=== PATIENT | male | born 1960 | race Caucasian/White ===

== ENCOUNTER 2017-05-28 14:39 | Outpatient (CLI) | payer OTHER | END 2017-05-28 14:40 | disposition short-term general hospital (02) | LOC: EMS 14:39 | PROVIDERS: ATTEND Surgery | DX: I95.9 Hypotension, unspecified (principal) | CPT/HCPCS: A0425; A0426 ==

== ENCOUNTER 2018-08-05 16:49 | Emergency (ER) | payer OTHER ==
--- NOTE | 2018-08-05 17:06 | ED Physician Documentation ---
PD HPI MHE - Stated complaint Stated Complaint: SI - Chief complaint Chief Complaint: MHE - History obtained from History obtained from: Patient, EMS - History of Present Illness Primary symptom: Suicidal ideation Pain level max: 0 Pain level now: 0 Contributing factors: Sig other ( left him this week) Similar symptoms before: Diagnosis (bipolar) Recently seen: Clinic (sent from [facility] today) - Additional information Additional information: Patient is a 58-year-old male with a history of bipolar disorder who states that he has been feeling very depressed lately and suicidal. States that he held a knife to his throat a few days ago but did not feel like he was going to kill himself at that time. He states he is unsure if he can keep himself safe at home. States his moved out this week and moved in with her sister. He states he does have a psychiatrist at the [employer] but has not seen them recently. Saw his primary care provider today who sent him to the emergency department for suicidal ideation. Review of Systems Constitutional: denies: Fever, Chills Ears: denies: Ear pain Nose: denies: Rhinorrhea / runny nose, Congestion Throat: denies: Sore throat Cardiac: denies: Chest pain / pressure Respiratory: denies: Cough GI: denies: Vomiting Skin: denies: Rash Musculoskeletal: denies: Neck pain, Back pain Neurologic: denies: Headache PD PAST MEDICAL HISTORY - Past Medical History Past Medical History: Yes Cardiovascular: Hypertension Endocrine/Autoimmune: HyPOthyroidism Psych: Bipolar disorder - Present Medications Home Medications: Ambulatory Orders Medication Instructions Recorded Confirmed Amlodipine Besylate [Norvasc] 10 mg 08/05/18 Atorvastatin [Lipitor] 10 mg 08/05/18 Chlorthalidone 25 mg 08/05/18 Divalproex Sodium [Divalproex 250 mg 08/05/18 Sodium ER] Dulaglutide [Trulicity] 1.5 mg SQ 08/05/18 Fenofibrate 160 mg 08/05/18 Gabapentin 300 mg PO 08/05/18 Insulin Aspart [Novolog Flexpen] 1 unit 08/05/18 Insulin Glargine [Lantus Solostar] 1 unit 08/05/18 Oxybutynin [Ditropan] 5 mg 08/05/18 Prazosin [Minipress] 1 mg PO QPM 08/05/18 08/05/18 QUEtiapine [SEROquel] 100 mg PO QPM 08/05/18 08/05/18 Senna [Senokot] 8.6 mg pe 08/05/18 Telmisartan [Micardis] 80 mg PO 08/05/18 Vardenafil HCl [Levitra] 20 mg PO 08/05/18 Venlafaxine HCl [Venlafaxine HCl 150 mg PO 08/05/18 08/05/18 ER] metFORMIN [Glucophage] 500 mg pe 08/05/18 traZODone [Desyrel] 50 mg 08/05/18 - Allergies Allergies/Adverse Reactions: Allergies Allergy/AdvReac Type Severity Reaction Status Date / Time No Known Drug Allergies Allergy Verified 08/05/18 16:58 - Living Situation Living Situation: reports: With family Living Arrangement: reports: At home - Social History Does the pt have substance abuse?: No - Family History Family history: reports: Non contributory PD ED PE NORMAL - Vitals Vital signs reviewed: Yes - General General: Alert and oriented X 3, No acute distress, Well developed/nourished - HEENT HEENT: PERRL, Moist mucous membranes, Other (Tearful) - Neck Neck: Supple, no meningeal sign - Cardiac Cardiac: RRR, Strong equal pulses - Respiratory Respiratory: No respiratory distress, Clear bilaterally - Abdomen Abdomen: Soft, Non tender, Non distended - Derm Derm: Warm and dry - Extremities Extremities: No edema - Neuro Neuro: Alert and oriented X 3 - Psych Psych: Other (Tearful) Results - Vitals Vitals: Vital Signs - 24 hr 08/05/18 16:51 Temperature 36.5 C Heart Rate 104 H Respiratory 18 Rate Blood Pressure 170/111 H O2 Saturation 98 Oxygen O2 Source Room air - Labs Labs: Laboratory Tests 08/05/18 08/05/18 08/05/18 17:12 17:12 17:12 WBC 6.0 RBC 4.70 Hgb 15.1 Hct 42.3 MCV 90.1 MCH 32.1 H MCHC 35.7 RDW 12.1 Plt Count 280 MPV 8.0 Neut # (Auto) 3.4 Lymph # (Auto) 1.8 [place] # (Auto) 0.5 Eos # (Auto) 0.2 Baso # (Auto) 0.1 Absolute Nucleated RBC 0.00 Nucleated RBC % 0.0 Sodium 131 L Potassium 3.2 L Chloride 98 L Carbon Dioxide 23 Anion Gap 10.0 BUN 22 H Creatinine 1.1 Estimated GFR (MDRD) 69 L Glucose 305 H Calcium 9.6 Total Bilirubin 0.7 AST 27 ALT 22 Alkaline Phosphatase 70 Total Protein 7.7 Albumin 4.3 Globulin 3.4 Albumin/Globulin Ratio 1.3 Lipase 48 TSH 1.19 Urine Color Urine Clarity Urine pH Ur Specific [place] Urine Protein Urine Glucose (UA) Urine Ketones Urine Occult Blood Urine Nitrite Urine Bilirubin Urine Urobilinogen Ur Leukocyte Esterase Urine RBC Urine WBC Ur Squamous Epith Cells Urine Bacteria Ur Microscopic Review Urine Culture Comments Salicylates < 6.0 Urine Opiates Screen Ur Oxycodone Screen Urine Methadone Screen Ur Propoxyphene Screen Acetaminophen < 10 L Ur Barbiturates Screen Ur Tricyclics Screen Ur Phencyclidine Scrn Ur Amphetamine Screen U Methamphetamines Scrn U Benzodiazepines Scrn Urine Cocaine Screen U Cannabinoids Screen Ethyl Alcohol < 5.0 08/05/18 17:19 WBC RBC Hgb Hct MCV MCH MCHC RDW Plt Count MPV Neut # (Auto) Lymph # (Auto) [place] # (Auto) Eos # (Auto) Baso # (Auto) Absolute Nucleated RBC Nucleated RBC % Sodium Potassium Chloride Carbon Dioxide Anion Gap BUN Creatinine Estimated GFR (MDRD) Glucose Calcium Total Bilirubin AST ALT Alkaline Phosphatase Total Protein Albumin Globulin Albumin/Globulin Ratio Lipase TSH Urine Color YELLOW Urine Clarity CLEAR Urine pH 5.5 Ur Specific [place] >=1.030 H Urine Protein 100 H Urine Glucose (UA) >=1000 H Urine Ketones NEGATIVE Urine Occult Blood TRACE-INTA Urine Nitrite NEGATIVE Urine Bilirubin NEGATIVE Urine Urobilinogen 0.2 (NORMAL) Ur Leukocyte Esterase NEGATIVE Urine RBC 0-5 Urine WBC 0-3 Ur Squamous Epith Cells RARE Squamous Urine Bacteria None Seen Ur Microscopic Review INDICATED Urine Culture Comments NOT INDICATED Salicylates Urine Opiates Screen NEGATIVE Ur Oxycodone Screen NEGATIVE Urine Methadone Screen NEGATIVE Ur Propoxyphene Screen NEGATIVE Acetaminophen Ur Barbiturates Screen NEGATIVE Ur Tricyclics Screen NEGATIVE Ur Phencyclidine Scrn NEGATIVE Ur Amphetamine Screen NEGATIVE U Methamphetamines Scrn NEGATIVE U Benzodiazepines Scrn NEGATIVE Urine Cocaine Screen NEGATIVE U Cannabinoids Screen NEGATIVE Ethyl Alcohol PD MEDICAL DECISION MAKING - ED course Complexity details: reviewed results, re-evaluated patient, considered differential, d/w patient ED course: Patient is a 58-year-old male with suicidal ideation and a history of bipolar. recently left him. He cannot contract for safety at this time. He wants to be hospitalized. Patient is medically clear for psychiatric care. Blood sugar improved with IV fluids and insulin. Social work consult placed and he will be held in the emergency department overnight to see social work in the morning. This document was made in part using voice recognition software. While efforts are made to proofread this document, sound alike and grammatical errors may occur. Departure - Departure Clinical Impression: Hyperglycemia, Suicidal ideation Depression Qualifiers: Depression Type: unspecified Qualified Code(s): F32.9 - Major depressive disorder, single episode, unspecified Condition: Stable
[2018-08-05 17:21] LABS: MUDS CUTOFF CONCENTRATIONS CUTOFF CONC BELOW:
[2018-08-05 17:22] LABS: BASOPHILS # (AUTO) 0.1 10^3/uL (0.0-0.1); BASOPHILS % (AUTO) 1.1 %; EOSINOPHILS # (AUTO) 0.2 10^3/uL (0.0-0.7); HGB - HEMOGLOBIN 15.1 g/dL (14.0-18.0); LYMPHOCYTES # (AUTO) 1.8 10^3/uL (1.5-3.5); LYMPHOCYTES % (AUTO) 30.5 %; MEAN CORPUSCULAR HEMOGLOBIN 32.1 pg (27.0-31.0); MEAN CORPUSCULAR HGB CONC 35.7 g/dL (32.0-36.0); MEAN CORPUSCULAR VOLUME 90.1 fL (80.0-94.0); MONOCYTES # (AUTO) 0.5 10^3/uL (0.0-1.0); MONOCYTES % (AUTO) 7.7 %; NEUTROPHILS # (AUTO) 3.4 10^3/uL (1.5-6.6); NEUTROPHILS % (AUTO) 57.7 %; PLT - PLATELET COUNT 280 10^3/uL (130-450); RED CELL DISTRIBUTION WIDTH 12.1 % (12.0-15.0)
[2018-08-05 17:27] LABS: BILIRUBIN,URINE NEGATIVE (NEGATIVE); GLUCOSE, URINE (UA) >=1000 mg/dL (NEGATIVE); KETONES,URINE (UA) NEGATIVE (NEGATIVE); LEUKOCYTE ESTERASE, URINE NEGATIVE (NEGATIVE); NITRITE,URINE NEGATIVE (NEGATIVE); OCCULT BLOOD,URINE TRACE-INTA (NEGATIVE); PH,URINE 5.5 PH (5.0-7.5); PROTEIN,URINE 100 mg/dL (NEGATIVE); UROBILINOGEN,URINE 0.2 (NORMAL) E.U./dL (NORMAL)
[2018-08-05 17:29] LABS: CLARITY,URINE CLEAR (CLEAR)
[2018-08-05 17:32] LABS: ACETAMINOPHEN < 10 ug/mL (10-30); ALBUMIN 4.3 g/dL (3.2-5.5); ALBUMIN/GLOBULIN RATIO 1.3 (1.0-2.2); ALKALINE PHOSPHATASE 70 IU/L (42-121); ALT ALANINE AMINOTRANSFERASE 22 IU/L (10-60); AST ASPARTATE AMINOTRANSFERASE 27 IU/L (10-42); BILIRUBIN,TOTAL 0.7 mg/dL (0.2-1.0); BUN - BLOOD UREA NITROGEN 22 mg/dL (6-20); CALCIUM 9.6 mg/dL (8.5-10.3); CARBON DIOXIDE - CO2 23 mmol/L (21-32); CHLORIDE 98 mmol/L (101-111); CREATININE 1.1 mg/dL (0.6-1.2); GFR - MDRD 69 (>89); GLUCOSE 305 mg/dL (70-100); LIPASE 48 U/L (22-51); SALICYLATE < 6.0 mg/dL; SODIUM 131 mmol/L (135-145); TOTAL PROTEIN 7.7 g/dL (6.7-8.2)
[2018-08-05 17:35] LABS: BACTERIA,URINE None Seen /HPF (None Seen); RBC,URINE 0-5 /HPF (0-5); SQUAMOUS EPITHELIAL CELL,UR RARE Squamous (<= Few)
[2018-08-05 17:36] LABS: AMPHETAMINE SCREEN,URINE NEGATIVE (NEGATIVE); BENZODIAZEPINES SCREEN, URINE NEGATIVE (NEGATIVE); COCAINE SCREEN URINE NEGATIVE (NEGATIVE); METHADONE SCREEN, URINE NEGATIVE (NEGATIVE); METHAMPHETAMINES SCREEN, URINE NEGATIVE (NEGATIVE); OPIATE SCREEN, URINE NEGATIVE (NEGATIVE); OXYCODONE SCREEN, URINE NEGATIVE (NEGATIVE); PROPOXYPHENE SCREEN, URINE NEGATIVE (NEGATIVE); TRICYCLIC ANTIDEPRESSANT,URINE NEGATIVE (NEGATIVE)
[2018-08-05] MEDS ORDERED: SODIUM CHLORIDE 0.9% 1,000 ML IV ONE (17:50)
[2018-08-05] MEDS ORDERED: INSULIN REGULAR HUMAN 100 UNIT/1 ML 10 ML MDV SUBQ STA ×2 (17:50→19:14)
[2018-08-06 11:03] VITALS: BP 161/96
--- NOTE | 2018-08-06 12:12 | ED Physician Documentation ---
ED Addendum - Addendum Addendum: 08/06/18 07:00 AM The patient's care was turned over to me by the off going emergency physician Dr. Dunlap. The patient was medically cleared and is pending evaluation by social work 12: 00 p.m. the patient was seen and evaluated by social work and the patient contracts for safety and is appropriate for outpatient management. The patient is comfortable with this plan and feels safe. The patient contracts for safety with myself and with social work. I discussed warning signs and recommended that the patient should return to the emergency department immediately for any worsening or any concerns.
== END 2018-08-06 12:28 | disposition home or self-care (01) ==
LOC: EDUNIT# → ED 16:49
DX: R45.851 Suicidal ideations (principal); R73.9 Hyperglycemia, unspecified; F32.9 Major depressive disorder, single episode, unspecified; I10 Essential (primary) hypertension
CPT/HCPCS: 36415; 80053; 80306; 80307; 80320; 80329; 81001; 83690; 84443; 85025; 96360; 96361; 96372; 99283; 99284; J1815; 81003; 87086

== ENCOUNTER 2019-02-04 03:34 | Emergency (ER) | payer OTHER ==
[2019-02-04] MEDS ORDERED: COLCHICINE 0.6 MG TABLET PO STA ×2 (04:07→06:15)
[2019-02-04] MEDS ORDERED: INDOMETHACIN 25 MG CAPSULE PO STA (04:08)
[2019-02-04] MEDS ORDERED: oxyCODONE 5 MG TABLET PO STA ×2 (04:09→06:15)
--- NOTE | 2019-02-04 04:21 | ED Physician Documentation ---
History of Present Illness - Stated complaint Stated Complaint: R KNEE PX - Chief complaint Chief Complaint: Ext Problem - History obtained from History obtained from: Patient - History of Present Illness Timing: Other (1-2 months but steadily worsening past several days) Pain level now: 8 Improved by: rest Worsened by: movement (right knee) - Additonal information Additional information: c/o right knee pain and swelling x several days (milder symptoms, intermittently, x 1-2 months), became intolerable tonight. He says this is c/w previous episodes of gout that he has had. He says he has been prescribed colchicine and indocin for this but could not find these prescriptions tonight. Review of Systems Constitutional: denies: Fever, Chills, Sweats Skin: denies: Rash Musculoskeletal: reports: Joint pain, Joint swelling, Pain with weight bearing Neurologic: denies: Focal weakness, Numbness PD PAST MEDICAL HISTORY - Past Medical History Past Medical History: Yes Cardiovascular: Hypertension, High cholesterol Respiratory: Sleep apnea Endocrine/Autoimmune: Type 2 diabetes, HyPOthyroidism : Other Psych: Depression, Anxiety, Bipolar disorder Musculoskeletal: Gout Other Past Medical History: Insomnia; Erectile Dysfunction - Past Surgical History Past Surgical History: Yes HEENT: Other - Present Medications Home Medications: Ambulatory Orders Medication Instructions Recorded Confirmed Amlodipine Besylate [Norvasc] 10 mg 08/05/18 Atorvastatin [Lipitor] 10 mg 08/05/18 Chlorthalidone 25 mg 08/05/18 Divalproex Sodium [Divalproex 250 mg 08/05/18 Sodium ER] Dulaglutide [Trulicity] 1.5 mg SQ 08/05/18 Fenofibrate 160 mg 08/05/18 Gabapentin 300 mg PO 08/05/18 Insulin Aspart [Novolog Flexpen] 1 unit 08/05/18 Insulin Glargine [Lantus Solostar] 1 unit 08/05/18 Oxybutynin [Ditropan] 5 mg PO DAILY 08/05/18 Prazosin [Minipress] 1 mg PO QPM 08/05/18 08/05/18 QUEtiapine [SEROquel] 100 mg PO QPM 08/05/18 08/05/18 Senna [Senokot] 8.6 mg pe PO DAILY PRN 08/05/18 Telmisartan [Micardis] 80 mg PO DAILY 08/05/18 Vardenafil HCl [Levitra] 20 mg PO DAILY 08/05/18 Venlafaxine HCl [Venlafaxine HCl 150 mg PO DAILY 08/05/18 08/05/18 ER] metFORMIN [Glucophage] 500 mg PO DAILY 08/05/18 traZODone [Desyrel] 50 mg PO QPM 08/05/18 Colchicine 0.6 mg PO DAILY #7 tablet 02/04/19 Indomethacin [Indocin] 50 mg PO TID #40 capsule 02/04/19 oxyCODONE [Roxicodone] 5 - 10 mg PO Q6H PRN #20 tablet 02/04/19 - Allergies Allergies/Adverse Reactions: Allergies Allergy/AdvReac Type Severity Reaction Status Date / Time No Known Drug Allergies Allergy Verified 02/04/19 03:48 - Social History Does the pt smoke?: Yes Smoking Status: Current every day smoker Does the pt drink ETOH?: No Does the pt have substance abuse?: No - Immunizations Immunizations are current?: Yes - POLST Patient has POLST: No PD ED PE NORMAL - Vitals Vital signs reviewed: Yes - General General: Alert and oriented X 3, No acute distress (NAD at rest but obvious painful distress with movement or palpation right knee), Well developed/nourished - Derm Derm: Normal color, No rash PD ED PE EXPANDED - Extremities Extremities: Tenderness, Limited ROM, Swelling, Right knee, Other (right knee is hot to touch, swollen, tender, and limited ROM. there is no erythema) Results - Vitals Vitals: Vital Signs - 24 hr 02/04/19 02/04/19 02/04/19 03:35 03:49 04:59 Temperature 37.0 C 37.2 C 37.1 C Heart Rate 107 H 103 H 96 Respiratory 18 18 18 Rate Blood Pressure 151/90 H 168/90 H 174/94 H O2 Saturation 100 100 100 02/04/19 02/04/19 02/04/19 05:35 06:02 06:30 Temperature 36.5 C Heart Rate 103 H 105 H 88 Respiratory 18 16 17 Rate Blood Pressure 179/95 H 172/103 H 173/100 H O2 Saturation 99 100 100 Oxygen O2 Source Room air PD MEDICAL DECISION MAKING - ED course Complexity details: reviewed results, re-evaluated patient, considered differential, d/w patient Departure - Departure Disposition: 01 Home, Self Care Clinical Impression: Gout attack Qualifiers: Gout site: knee Gout etiology: unspecified cause Laterality: right Qualified Code(s): M10.9 - Gout, unspecified Condition: Good Instructions: ED Arthritis Gout, ED Diet Gout Follow-Up: [facility] [Provider Group] Prescriptions: Colchicine 0.6 mg PO DAILY #7 tablet Indomethacin [Indocin] 50 mg PO TID #40 capsule oxyCODONE [Roxicodone] 5 - 10 mg PO Q6H PRN #20 tablet PRN Reason: Pain Discharge Date/Time: 02/04/19 06:35
[2019-02-04] MEDS ORDERED: HYDROmorphone 1 MG/ML CARPUJECT IM STA (05:29)
[2019-02-04 06:47] VITALS: BP 173/100
== END 2019-02-04 06:35 | disposition home or self-care (01) ==
LOC: ED 03:34
DX: M10.9 Gout, unspecified (principal); I10 Essential (primary) hypertension; E11.9 Type 2 diabetes mellitus without complications; F17.200 Nicotine dependence, unspecified, uncomplicated; Z79.4 Long term (current) use of insulin
CPT/HCPCS: 96372; 99283; 99284; A9270; J1170

== ENCOUNTER 2021-04-28 09:03 | Outpatient (CLI) | payer OTHER | END 2021-04-28 09:04 | disposition critical access hospital (66) | LOC: EMS 09:03 | DX: T23.001A Burn of unspecified degree of right hand, unspecified site, initial encounter (principal); T23.071A Burn of unspecified degree of right wrist, initial encounter; T22.012A Burn of unspecified degree of left forearm, initial encounter; T79.9XXA Unspecified early complication of trauma, initial encounter; S80.211A Abrasion, right knee, initial encounter; R45.89 Other symptoms and signs involving emotional state; X08.8XXA Exposure to other specified smoke, fire and flames, initial encounter; Y93.89 Activity, other specified; Y92.009 Unspecified place in unspecified non-institutional (private) residence as the place of occurrence of the external cause | CPT/HCPCS: A0425; A0427 ==

== ENCOUNTER 2021-04-28 09:19 | Emergency (ER) | payer OTHER ==
[2021-04-28] MEDS ORDERED: KETOROLAC 30 MG/ML VIAL IVP STA (09:24)
[2021-04-28] MEDS ORDERED: DEXAMETHASONE 10 MG/ML VIAL IVP STA (09:24)
[2021-04-28] MEDS ORDERED: SODIUM CHLORIDE 0.9% 1,000 ML IV STA (09:31)
--- NOTE | 2021-04-28 11:55 | XRAY Report ---
PROCEDURE: Chest 1 View X-Ray INDICATIONS: dyspnea TECHNIQUE: One view of the chest was acquired. COMPARISON: None FINDINGS: Surgical changes and devices: None. Lungs and pleura: No pleural effusions or pneumothorax. Lungs are clear. Mediastinum: Mediastinal contours appear normal. Heart size is normal. Calcification is seen of th e aortic arch. Bones and chest wall: No suspicious bony lesions. Age-appropriate degenerative changes are seen. O verlying soft tissues appear unremarkable. IMPRESSION: Portable chest study within normal limits for age. Reviewed by: Henrique Null MD on 04/28/2021 10:54 AM [facility] Approved by: Henrique Null MD on 04/28/2021 10:54 AM [facility] Station ID: [id number]
[2021-04-28 12:07] LABS: HEMOGLOBIN TOTAL, VENOUS WB 15.6 g/dL (12.0-18.0); METHEMOGLOBIN VENOUS 0.2 % (0-1.5)
[2021-04-28 12:21] LABS: ALBUMIN 4.5 g/dL (3.2-5.5); ALBUMIN/GLOBULIN RATIO 1.3 (1.0-2.2); BILIRUBIN,TOTAL 0.7 mg/dL (0.2-1.0); CALCIUM 9.7 mg/dL (8.5-10.3); CREATININE 1.1 mg/dL (0.6-1.2); POTASSIUM 3.9 mmol/L (3.5-5.0); TOTAL PROTEIN 7.9 g/dL (6.7-8.2)
[2021-04-28] MEDS ORDERED: BACITRACIN ZINC OINT 1 PACKET TOP STA (12:23)
[2021-04-28 12:25] LABS: BASOPHILS % (AUTO) 0.3 %; EOSINOPHILS % (AUTO) 0.3 %; HCT - HEMATOCRIT 42.2 % (42.0-52.0); HGB - HEMOGLOBIN 14.9 g/dL (14.0-18.0); LYMPHOCYTES # (AUTO) 0.9 10^3/uL (1.5-3.5); LYMPHOCYTES % (AUTO) 7.7 %; MEAN CORPUSCULAR HEMOGLOBIN 31.6 pg (27.0-31.0); MEAN CORPUSCULAR HGB CONC 35.3 g/dL (32.0-36.0); MEAN CORPUSCULAR VOLUME 89.4 fL (80.0-94.0); MEAN PLATELET VOLUME 9.2 fL (7.4-11.4); MONOCYTES # (AUTO) 0.1 10^3/uL (0.0-1.0); NEUTROPHILS # (AUTO) 10.2 10^3/uL (1.5-6.6); NEUTROPHILS % (AUTO) 90.1 %; PLT - PLATELET COUNT 329 10^3/uL (130-450); RED BLOOD COUNT 4.72 10^6/uL (4.70-6.10); RED CELL DISTRIBUTION WIDTH 11.7 % (12.0-15.0); WHITE BLOOD COUNT 11.4 x10^3/uL (4.8-10.8)
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
[2021-04-28 13:23] LABS: B. PARAPERTUSSIS- RESP PCR PAN NOT DETECTED; B. PERTUSSIS- RESP PCR PANEL NOT DETECTED; C. PNEUMONIAE- RESP PCR PANEL NOT DETECTED; CORONAVIRUS 229E-RESP PCR NOT DETECTED; CORONAVIRUS HKU1-RESP PCR NOT DETECTED; CORONAVIRUS NL63-RESP PCR NOT DETECTED; CORONAVIRUS OC43-RESP PCR NOT DETECTED; HUMAN METAPNEUMOVIRUS NOT DETECTED; INFLUENZA A- RESP PCR PANEL NOT DETECTED; INFLUENZA B - RESP PCR PANEL NOT DETECTED; M. PNEUMONIAE- RESP PCR PANEL NOT DETECTED; PARAINFLUENZA VIRUS 1 NOT DETECTED; PARAINFLUENZA VIRUS 2 NOT DETECTED; PARAINFLUENZA VIRUS 3 NOT DETECTED; PARAINFLUENZA VIRUS 4 NOT DETECTED; RHINOVIRUS/ENTEROVIRUS NOT DETECTED; RSV- RESP PCR PANEL NOT DETECTED; SARS-CoV-2 -RESP PCR PANEL NOT DETECTED
[2021-04-28 13:45] VITALS: BP 158/99
== END 2021-04-28 13:56 | disposition home or self-care (01) ==
LOC: EDUNIT# → ED 09:19
DX: T22.112A Burn of first degree of left forearm, initial encounter (principal); T22.111A Burn of first degree of right forearm, initial encounter; T28.0XXA Burn of mouth and pharynx, initial encounter; F17.200 Nicotine dependence, unspecified, uncomplicated; I10 Essential (primary) hypertension; E11.9 Type 2 diabetes mellitus without complications; Z79.4 Long term (current) use of insulin; Z20.822 Contact with and (suspected) exposure to COVID-19
CPT/HCPCS: 0202U; 36415; 71045; 80053; 82375; 85025; 96374; 99284; A9270